=== PATIENT | female | born 2000 | race Caucasian/White ===

== ENCOUNTER 2019-02-06 21:19 | Emergency (ER) | payer OTHER, MEDICAID ==
[2019-02-06] MEDS: ACETAMINOPHEN 500 MG TAB PO (22:31)
[2019-02-06] MEDS: IBUPROFEN 600 MG TAB PO (22:32)
[2019-02-06] MEDS: CARBAMIDE PEROXIDE 6.5% 15ML OTIC BOTH EARS (22:36)
== END 2019-02-06 23:50 | disposition home or self-care (01) ==
LOC: FTE 21:19
DX: H66.93 Otitis media, unspecified, bilateral (principal); J03.90 Acute tonsillitis, unspecified; H61.23 Impacted cerumen, bilateral
CPT/HCPCS: 69209; 99283-25